=== PATIENT | male | born 1955 | race Caucasian/White ===

== ENCOUNTER 2023-11-16 12:52 | Outpatient (CLI) | payer OTHER, MEDICARE ==
--- NOTE | 2023-11-16 15:31 | XRAY Report ---
PROCEDURE: Chest 2V INDICATIONS: HTN TECHNIQUE: 2 views of the chest were acquired. COMPARISON: None. FINDINGS: Surgical changes and devices: None. Lungs and pleura: No pleural effusions or pneumothorax. Lungs are clear. Mediastinum: Mediastinal contours appear normal. Heart size is normal. Bones and chest wall: No suspicious bony lesions. Overlying soft tissues appear unremarkable. IMPRESSION: No acute cardiopulmonary process. Reviewed by: Freddie Champagne MD on 11/16/2023 3:29 PM PDT Approved by: Freddie Champagne MD on 11/16/2023 3:29 PM PDT Station ID: [id number]
== END 2023-11-16 12:53 | disposition home or self-care (01) ==
LOC: DI 12:52
PROVIDERS: ATTEND Internal Medicine
DX: I10 Essential (primary) hypertension (principal)

== ENCOUNTER 2023-11-20 13:16 | Outpatient (CLI) | payer OTHER, MEDICARE ==
[2023-11-20] MEDS: ALBUTEROL 1 PUFF INH STA (15:11)
== END 2023-11-20 13:17 | disposition home or self-care (01) ==
LOC: RT 13:16
PROVIDERS: ATTEND Internal Medicine
DX: R05.9 Cough, unspecified (principal); F17.210 Nicotine dependence, cigarettes, uncomplicated
CPT/HCPCS: 94375; 94727; 94729